=== PATIENT | male | born 1975 | race Caucasian/White ===

== ENCOUNTER 2024-05-13 06:17 | Day surgery (SDC) | payer OTHER, SELFPAY | END 2024-05-13 15:50 | disposition home or self-care (01) | LOC: GI 06:17 | PROVIDERS: ATTENDING PHYSICIAN Internal Medicine | DX: Z12.11 Encounter for screening for malignant neoplasm of colon (principal); K64.8 Other hemorrhoids | CPT/HCPCS: G0121 ==

== ENCOUNTER → 2024-10-01 09:01 | Outpatient (REF) | payer OTHER, SELFPAY | LOC: HWRCS 09:01 | PROVIDERS: ATTENDING PHYSICIAN Internal Medicine Cardiovascular Disease; FAMILY PHYSICIAN Physician Assistant | DX: I48.0 Paroxysmal atrial fibrillation (principal); I42.0 Dilated cardiomyopathy | CPT/HCPCS: 93306 ==

== ENCOUNTER 2025-04-16 18:20 | Emergency (ER) | payer OTHER, SELFPAY ==
[2025-04-16] VITALS (14 sets, daily range): BP systolic 100–152; BP diastolic 73–95
--- NOTE | 2025-04-16 19:10 | ED.GENMED ---
History of Present Illness
General
Chief Complaint: Heart Rate Problem
Source: patient
Exam Limitations: none
Time Seen by Provider: 04/16/25 18:49
Nursing documentation reviewed up to this point in time: agreed with
History of Present Illness
History of Present Illness:
Patient with history of paroxysmal atrial fibrillation, status post cardioversion/ablation 4 years ago, presents to ED secondary to recurrent episodes of 'fluttering' sensation in his chest last night. When he checked his Apple Watch, his heart
rate was elevated with irregular rhythm. Patient proceeded to take Eliquis last night and spoke with on-call color dipper this morning, who recommended the patient to re-start Eliquis and start taking metoprolol. If symptoms persisted, recommended
patient to come to ED for an evaluation, including potential cardioversion. Patient denies associated dizziness, nausea, chest pain, or shortness of breath. Patient has taken 2 doses of Eliquis so far.
Past History
Past History
ED Past Medical History: None
ED Past Surgical History: None
Social History
Tobacco: Non-smoker
Personal:
Living: with family
Employment: Employed
Review of Systems
Review of Systems
Allergies reviewed?: Yes
All Other Systems: ROS reviewed and negative except as documented in HPI and ROS
Constitutional: Reports no symptoms
Respiratory: Reports no symptoms; Denies trouble breathing
Cardiac: Reports no symptoms; Denies chest pain
ABD/GI: Reports no symptoms
Musculoskeletal: Reports no symptoms
Skin: Reports no symptoms
Neurological: Reports no symptoms
Phy Exam
Physical Exam
Physical Exam:
Physical Exam
General: no apparent distress, not acutely ill. afebrile
Head: nc/at. eomi
Neck: supple. no meningeal signs.
Heart: irregularly irregular. no murmur
Lungs: no acute respiratory distress. clear bilaterally
Abdomen: normal bowel sounds. no distention. nontender
Neuro: alert and oriented x 3. no focal neurological deficits
Skin: no rash
Psychiatric: well kept. interactive and cooperative
Extremities: no edema. no calf tenderness.
Course
Orders/Labs/Results
Orders:
Orders
04/16/25 18:25
ECG [Electrocardiogram (*1)] Urgent
Reason for Study: Tachycardia
EKG- Treatment ONCE
04/16/25 19:04
Diltiazem HCl [Cardizem] 15 mg IV NOW STA
04/16/25 19:15
Diltiazem 125 mg/125 ml Nss [Cardizem] 125 mg in 125 ml IV PER PROTOCOL
Initial dose in mg/hr, then titrate:: 5
Titrate to keep:: Heart rate 80-100 bpm
Titrate by mg/hr:: 5 mg/hr
Frequency of titrations (minutes):: 15
Maximum dose in mg/hr:: 15
04/16/25 19:16
Complete Blood Count/With Diff Urgent
Comprehensive Metabolic Panel Urgent
Magnesium Urgent
TSH Urgent
Troponin I Urgent
04/16/25 20:10
Diltiazem HCl [Cardizem] 10 mg IV NOW STA
04/16/25 21:12
Propofol [Diprivan] 20 ml .ROUTE .STK-MED
04/16/25 22:24
EKG [Electrocardiogram (*1)] Urgent
Reason for Study: Palpitations
EKG- Treatment ONCE
Abnormal Lab Results
04/16/25
19:16
Absolute Lymphs (auto) 4.2 H 10^3/uL
(1.2-3.4)
Absolute Monos (auto) 1.1 H 10^3/uL
(0.1-0.6)
Monocytes % 10.6 H %
(1.7-9.3)
BUN 22 H mg/dl
(9-20)
Total Bilirubin 1.5 H mg/dl
(0.2-1.3)
04/16/25 19:16
04/16/25 19:16
Vital Signs
Initial and Last Documented VS:
Initial Vital Signs
Temp Pulse Resp BP Pulse Ox
97.5 F 95 20 152/94 99
04/16/25 18:23 04/16/25 18:23 04/16/25 18:23 04/16/25 18:23 04/16/25 18:23
Last Documented Vital Signs
Temp Pulse Resp BP Pulse Ox
97.5 F 72 16 121/79 98
04/16/25 18:23 04/16/25 22:58 04/16/25 22:58 04/16/25 22:58 04/16/25 22:58
Procedures
Moderate Sedation
ASA Risk Score: Class I
Chart and allergies reviewed: Yes
Consent for anesthesia obtained: Yes
Time out completed (validating right patient & procedure): Yes
Moderate Sedation Start Time(when first medication is given): 22:18
History of difficult intubation: No
Airway free of obstruction: Yes
Patient has a gag reflex: Yes
Patient is able to open mouth: Yes
Patient has no dentures: Yes
Patient has no loose teeth: Yes
Medication administered by Provider during Moderate Sedation: IV Propofol (mg)
Total dose administered: 90
Time drug administered: 22:18
Moderate Sedation Procedure End Time: 22:28
Cardioversion
Indication:: Afib
Performed by:: Landon Diaz M.D.
Synchronized?: Yes
Energy Used: 200 joules
Number of attempts: 1
Successful?: Yes
Complications: None
ASA Risk Score: Class I
Any reaction or bad outcome to prior sedation/anesthesia?: No history of a reaction
Sedation level to be attained: moderate
Chart and allergies reviewed: Yes
Patient reassessed prior to sedation: Yes
Time out completed at (validating right patient & procedure): 22:18
History of difficult intubation: No
Airway free of obstruction: Yes
Patient has a gag reflex: Yes
Patient is able to open mouth: Yes
Patient has no dentures: Yes
Patient has no loose teeth: Yes
Medication administered by Provider during Moderate Sedation: IV Propofol (mg)
Total dose administered: 90
Time drug administered: 22:18
Start Time: 22:18
Stop Time: 22:28
MDM/Problems Addressed
MDM/Problems Addressed:
History and exam consistent with atrial fibrillation. Patient started on Cardizem infusion and observed, without conversion to sinus rhythm. As such, after discussion, decision made to perform cardioversion. Patient already started on Eliquis at
home, with 2 doses taken.
Procedure consent on the chart.
Patient successfully cardioverted after 1 attempt via 200 J, confirmed by repeat EKG.
Patient will be discharged home in stable condition, to the care of his , with recommendation to follow-up with his color dipper for reevaluation.
Critical care statement: A total of 40 minutes of critical care time was provided for this patient. This includes management of unstable vital signs, evaluation of the patient at bedside, reviewing the patient's pertinent medical records, review of
old EKGs and review of pertinent medical records. This time with separate from time utilized to perform the aforementioned documented procedures
*Pulse Oximetry
SaO2: 99
Oxygen Mode of Delivery: Room air
Patient hypoxic: no
*EKG
Interpreted by ED Provider?: Yes
EKG Intrepretation Date: 04/16/25
Heart Rate: 83
Rate: normal
Rhythm: a-fib
[place]: normal axis
Interval: normal interval
*Critical Care Note
Total Time (30-74mins, 75-104mins- exclusive of procedures): 40 min
ED Attending Note
-
Portions of this chart may have been created with voice recognition software.� Occasional wrong word or��sound alike� substitutions may have occurred due to the inherent limitations of voice recognition software.
Discharge Plan
Departure
Patient Disposition: Home (Routine Discharge)
Date of Disposition: 04/16/25
Time of Disposition: 23:02
Patient with high blood pressure during this ER visit?: Yes
Condition: Good
Discharge Problem:
Atrial fibrillation
Instructions: Atrial Fibrillation (DC)
Prescriptions:
No Action
multivitamin [One Daily Multivitamin] 1 EACH tablet
1 ea PO DAILY
cetirizine [Zyrtec] 10 MG tablet
10 mg PO DAILY
fluticasone propionate 1 SPRAY spray,suspension
1 spray intranasal DAILY
apixaban [Eliquis] 5 MG tablet
5 mg PO BID
pantoprazole 40 MG tablet,delayed release (DR/EC)
40 mg PO DAILY Qty: 14 0RF
Referrals:
Fidel Mcdaniel PA [Family Provider, Family Practice]
Diego Nava MD [Active, Cardiology]
Activity Restrictions/Additional Instructions:
As discussed, please continue to take Eliquis twice daily along with metoprolol once daily, until reevaluation with your color dipper.
Interventions
Interventions:
*Risk Screen - Suicide Last Done: 04/16/25 19:30
*General Assessment Last Done: 04/16/25 18:23
*Neglect/Abuse Screening Last Done: 04/16/25 19:30
*ED- Fall Risk Assessment Last Done: 04/16/25 19:30
*ED COVID-19 Vaccine History Last Done: 04/16/25 19:30
*ED Influenza Vaccine History Last Done: 04/16/25 19:30
*Nursing Disposition Last Done: 04/16/25 23:24
ED- Cardiac Assessment Last Done: 04/16/25 19:30
ED- Pulmonary Assessment Last Done: 04/16/25 19:30
Discharge Date and Time
Discharge Date/Time: 04/16/25 23:25
Print Language: [id number]
[2025-04-16] MEDS: CARDIZEM 15 MG IV (19:20)
[2025-04-16] MEDS: CARDIZEM 125 IV (19:20)
[2025-04-16 19:28] LABS: Hematocrit 46.0 % (39.0-52.0); Hemoglobin 15.5 g/dL (13.0-18.0); Mean Corp Hgb Conc. 33.7 g/dL (33.0-37.0); Mean Corpuscular Volume 83.2 fL (80.0-94.0); Nucleated Red Blood Cells % 0 % (-); Platelet Count 216 10^3/uL (130-400); Red Cell Dist. Width 12.6 % (11.5-14.5)
[2025-04-16 19:37] LABS: ALT (SGPT) 31 U/L (0-50); AST (SGOT) 27 U/L (17-59); Albumin 4.4 g/dl (3.5-5.0); Alkaline Phosphatase 89 U/L (38-126); Blood Urea Nitrogen 22 mg/dl (9-20); Calcium 9.2 mg/dl (8.4-10.2); Carbon Dioxide 27 mmol/L (22-30); Chloride 104 mmol/L (98-107); Glucose 94 mg/dl (70-99); Magnesium 2.1 mg/dl (1.6-2.3); Potassium 4.3 mmol/L (3.5-5.1); Sodium 137 mmol/L (135-145); Total Protein 7.5 g/dl (6.3-8.2); eGFR > 60.00
[2025-04-16 19:48] LABS: Troponin I < 0.012 ng/ml
[2025-04-16 20:07] LABS: TSH 1.49 uIU/ml (0.47-4.68)
[2025-04-16] MEDS: CARDIZEM 10 MG IV (20:21)
== END 2025-04-16 23:25 | disposition home or self-care (01) ==
LOC: EMR 18:20
PROVIDERS: EMERGENCY PHYSICIAN Emergency Medicine; FAMILY PHYSICIAN Physician Assistant
DX: I48.91 Unspecified atrial fibrillation (principal); Z79.01 Long term (current) use of anticoagulants
CPT/HCPCS: 96374; 96376; 92960; 99152; 99291; 80053; 83735; 84443; 84484; 85025; 93005